=== PATIENT | male | born 1995 | race Two or more races ===

== ENCOUNTER 2018-04-22 15:03 | Emergency (ER) | payer MEDICAID, OTHER ==
[~2018-04-22] VITALS: Ht 172.7 cm; Wt 66.7 kg
[2018-04-22 15:10] VITALS: BP 131/63
[2018-04-22] MEDS ORDERED: TETANUS-DIPTH-ACEL PERTUSSIS 0.5ML SYRG IM ONE (15:30)
== END 2018-04-22 16:27 | disposition home or self-care (01) ==
LOC: ER 15:21
DX: S61.011A Laceration without foreign body of right thumb without damage to nail, initial encounter (principal); F17.210 Nicotine dependence, cigarettes, uncomplicated; W26.0XXA Contact with knife, initial encounter; Y93.89 Activity, other specified; Y99.8 Other external cause status; Y92.89 Other specified places as the place of occurrence of the external cause
CPT/HCPCS: 12002; 90471; 90715

== ENCOUNTER 2020-08-28 20:10 | Emergency (ER) | payer MEDICAID, OTHER ==
[~2020-08-28] VITALS: Ht 172.7 cm; Wt 68.0 kg
[2020-08-28 21:55] VITALS: BP 113/70
== END 2020-08-28 23:28 | disposition home or self-care (01) ==
LOC: ER 20:15
DX: S63.91XA Sprain of unspecified part of right wrist and hand, initial encounter (principal); S62.300D Unspecified fracture of second metacarpal bone, right hand, subsequent encounter for fracture with routine healing; F17.210 Nicotine dependence, cigarettes, uncomplicated; X58.XXXD Exposure to other specified factors, subsequent encounter
CPT/HCPCS: 73130

== ENCOUNTER 2022-07-29 17:11 | Emergency (ER) | payer MEDICAID | END 2022-07-29 18:16 | disposition left against medical advice (07) | LOC: ER 17:11 | DX: Z00.00 Encounter for general adult medical examination without abnormal findings (principal); Z53.21 Procedure and treatment not carried out due to patient leaving prior to being seen by health care provider ==